=== PATIENT | female | born 1985 | race Two or more races ===

== ENCOUNTER 2022-12-12 20:59 | Emergency (ER) | payer OTHER ==
[~2022-12-12] VITALS: Ht 165.1 cm; Wt 68.0 kg
[2022-12-12] MEDS ORDERED: ACETAMINOPHEN 325 MG TABLET ONE (22:06)
[2022-12-12] MEDS ORDERED: ACETAMINOPHEN 325 MG TABLET PO ONE (22:30)
[2022-12-12 22:53] VITALS: BP 130/79; TEMP 98.3; O2SAT 100
== END 2022-12-12 22:53 ==
LOC: ER 21:01
DX: R51.9 Headache, unspecified (principal)